=== PATIENT | male | born 1935 | race Caucasian/White ===

== ENCOUNTER 2021-12-05 15:56 | Observation (INO) | payer BC, MEDICARE ==
[~2021-12-05] VITALS: Ht 167.6 cm; Wt 50.6 kg
--- NOTE | 2021-12-05 16:26 | EKG ---
[address] [address] Test Date: 2021-12-05 Test Time: 16:19:08 Pat Name: MEAGAN POLLARD Department: Room: Gender: M Supervisor [employer]: [employer] : 1935 Requested By: CHALO ARCHIBALD Order Number: [id number] Reading MD: Micah Ambrosio Measurements Intervals Stephan Rate: 94 P: 25 LA: 198 QRS: -20 QRSD: 88 T: 25 QT: 354 QTc: 448 Interpretive Statements SINUS RHYTHM Electronically Signed On 12-07-2021 12:50:33 ACCOUNTING/FINANCE TUTOR by Micah Ambrosio
[2021-12-05] MEDS ORDERED: ACETAMINOPHEN 650 MG SUPP.RECT. ONE (16:30)
[2021-12-05] MEDS ORDERED: ACETAMINOPHEN 500 MG TABLET PO ONE (16:30)
--- NOTE | 2021-12-05 16:34 | PHYS DOC ---
Past History Additional Past Medical Histor: UNKNOWN DETAILS; PT ON BLOOD THINNER FOR UNKNOWN REASON; ENLARGED PROSTATE Past Surgical History: Other Additional Past Surgical Histo: UNKNOWN Alcohol Use: Sober General Adult EDM: Chief Complaint: ALTERED MENTAL STATUS HPI: HPI: 86-year-old male presents with altered mental status. Patient has dementia at baseline. Entire history comes from EMS reports. The patient was reported to be put to bed by his family yesterday and he was his normal confused self. Today, he has been more altered than normal since he woke up this morning. Jenni zamorano has a history of UTIs in the past. They report he had a fever at home. He does have a fever on arrival. Review of Systems: Review of Systems: Unable to evaluate due to patient's mental status. Current Medications: Current Meds: Current Medications Medications (Trade) Dose Ordered Sig/Raegan Start Time Stop Time Status Last Admin Dose Admin Acetaminophen (Tylenol) 1,000 mg 1X ONCE 12/05/21 16:30 12/05/21 16:31 UNV Allergies: Allergies: Allergies Coded Allergies Type Severity Reaction Last Updated Verified Unable to Assess 12/05/21 No Physical Exam: PE: Constitutional: Well developed, well nourished, no acute distress, fever. [] HENT: Normocephalic, atraumatic, bilateral external ears normal, oropharynx moist, no oral exudates, nose normal. [] Eyes: PERRLA, EOMI, conjunctiva normal, no discharge. [] Neck: Normal range of motion, no tenderness, supple, no stridor. [] Cardiovascular: Heart rate regular rhythm, no murmur [] Lungs & Thorax: Bilateral breath sounds clear to auscultation [] Abdomen: Bowel sounds normal, soft, generalized abdominal tenderness, no masses, no pulsatile masses. [] Skin: Warm, dry, no erythema, no rash. [] Back: No tenderness, no CVA tenderness. [] Extremities: No tenderness, no cyanosis, no clubbing, ROM intact, no edema. [] Neurologic: Alert, demented. [] Psychologic: Affect normal, mood normal. [] Current Patient Data: Vital Signs: Vital Signs Date Time Temp Pulse Resp B/P (MAP) Pulse Ox O2 Delivery O2 Flow Rate FiO2 12/05/21 16:07 101.2 95 23 148/80 (102) 95 Room Air EKG: EKG: Sinus rhythm, rate 94, leftward axis, no ST elevation or depression. [] Radiology/Procedures: Radiology/Procedures: [] Impressions: CT brain without contrast. HISTORY: Altered mental status CT scan of brain was done without contrast. There is slight mucosal thickening in the left maxillary sinus. There is no skull fracture. There is no intracranial hemorrhage or subdural hematoma. There is diffuse atrophy. Acute CVA is not identified. Ventricles are normal in size. There is decreased density in the periventricular white matter. IMPRESSION: 1. Atrophy and chronic white matter changes. 2. No intracranial hemorrhage or definite acute finding. PQRS Compliance Statement: One or more of the following individualized dose reduction techniques were utilized for this examination: 1. Automated exposure control 2. Adjustment of the mA and/or kV according to patient size 3. Use of iterative reconstruction technique Electronically signed by: Daron Dejesus MD (12/05/2021 4:43 PM) [facility] DICTATED AND SIGNED BY: DARON DEJESUS MD DATE: 12/05/211637 CC: CHALO ARCHIBALD DO; JOHN RICH MD ~MTH0 0 Heart Score: C/O Chest Pain: N/A Risk Factors: Risk Factors: DM, Current or recent (<one month) smoker, HTN, HLP, family history of CAD, obesity. Risk Scores: Score 0 - 3: 2.5% MACE over next 6 weeks - Discharge Home Score 4 - 6: 20.3% MACE over next 6 weeks - Admit for Clinical Observation Score 7 - 10: 72.7% MACE over next 6 weeks - Early Invasive Strategies Course & Med Decision Making: Course & Med Decision Making Pertinent Labs and Imaging studies reviewed. (See chart for details) The patient has an elevated temperature. We will continue his 1 L of lactated Ringer's started by EMS. We will give him a gram of Tylenol. Head CT is negative for acute findings. Chest x-ray is negative for acute findings. Patient's blood pressure is elevated at 161/93. His heart rate is in the 90s. After blood cultures were drawn, the patient was given a gram of Rocephin. The patient's labs are unremarkable. Urinalysis is pending. I plan to admit the patient to the hospital. I spoke with Dr. Molina and he has accepted the patient for admission. Dr. Martinez has been made aware of the patient while he is still in the emergency room. We do not have beds available in the hospital at this time. [] Dragon Disclaimer: Dragon Disclaimer: This electronic medical record was generated, in whole or in part, using a voice recognition dictation system. Departure Departure: Impression: Primary Impression: Altered mental status Additional Impression: Fever Disposition: ADMITTED INPATIENT Admitting Physician: Paddy Molina Condition: STABLE Referrals: PCP,UNKNOWN (PCP) CHALO ARCHIBALD DO Dec 05, 2021 16:34
--- NOTE | 2021-12-05 16:41 | RAD ---
EXAM: Chest, single view. HISTORY: Altered mental status. COMPARISON: None. FINDINGS: A frontal view of the chest is obtained. There are chronic interstitial changes. There is n o consolidation, pleural effusion or pneumothorax. The heart is normal in size. IMPRESSION: No acute pulmonary finding. Electronically signed by: Becky Marroquin MD (12/05/2021 4:38 PM) [facility]
[2021-12-05] MEDS ORDERED: ACETAMINOPHEN 650 MG SUPP.RECT. PR ONE (16:45)
--- NOTE | 2021-12-05 16:45 | RAD ---
CT brain without contrast. HISTORY: Altered mental status CT scan of brain was done without contrast. There is slight mucosal thickening in the left maxillary sinus. There is no skull fracture. There is no intracranial hemorrhage or subdural hematoma. There is diffuse atrophy. Acute CVA is not identified. Ventricles are normal in size. There is decreased dens ity in the periventricular white matter. IMPRESSION: 1. Atrophy and chronic white matter changes. 2. No intracranial hemorrhage or definite acute finding. PQRS Compliance Statement: One or more of the following individualized dose reduction techniques were utilized for this examinat ion: 1. Automated exposure control 2. Adjustment of the mA and/or kV according to patient size 3. Use of iterative reconstruction technique Electronically signed by: Daron Dejesus MD (12/05/2021 4:43 PM) [facility]
[2021-12-05 17:40] LABS: CALCIUM 8.6 mg/dL (8.5-10.1); CREATININE 1.3 mg/dL (0.7-1.3); GFR 52.6; POTASSIUM 4.3 mmol/L (3.5-5.1)
[2021-12-05 17:42] LABS: BASO % 1 % (0-3); EOS % 0 % (0-3); HEMATOCRIT 47.2 % (39.0-53.0); HEMOGLOBIN 15.9 g/dL (13.0-17.5); LYMPH # 0.4 x10^3/uL (1.0-4.8); LYMPH % 5 % (24-48); MEAN CORPUSCULAR HEMOGLOBIN 31 pg (25-35); MEAN CORPUSCULAR HGB CONC 34 g/dL (31-37); MEAN CORPUSCULAR VOLUME 92 fL (79-100); MONO # 0.7 x10^3/uL (0.0-1.1); MONO % 9 % (0-9); NEUT # 6.9 x10^3uL (1.8-7.7); NEUT % 85 % (31-73); PLATELET COUNT 176 x10^3/uL (140-400); RED BLOOD COUNT 5.13 x10^6/uL (4.30-5.70); RED CELL DISTRIBUTION WIDTH 13.1 % (11.5-14.5)
[2021-12-05 17:46] LABS: ALBUMIN 3.5 g/dL (3.4-5.0); ALBUMIN/GLOBULIN RATIO 1.2 (1.0-1.7); TOTAL BILIRUBIN 0.5 mg/dL (0.2-1.0); TOTAL PROTEIN 6.5 g/dL (6.4-8.2)
[2021-12-05 17:54] LABS: BILIRUBIN,URINE NEG (NEG); CLARITY,URINE CLOUDY; COLOR,URINE YELLOW; GLUCOSE,URINE NEG (NEG)
[2021-12-05 17:55] LABS: BACTERIA,URINE MANY /HPF (0-FEW); NITRITE,URINE POS (NEG); SQUAMOUS EPITHELIAL CELL,UR OCC /LPF; UROBILINOGEN,URINE 0.2 mg/dL (0.2 mg/dL); WBC,URINE >40 /HPF (0-4)
[2021-12-05] MEDS ORDERED: cefTRIAXone SODIUM 1 GM VIAL ONE (17:57)
[2021-12-05] MEDS ORDERED: IV NORMAL SALINE 50ML 50 ML ONE (17:57)
[2021-12-05] MEDS ORDERED: ONDANSETRON PF 4 MG/2 ML VIAL. IVP PRN (18:00)
[2021-12-05 18:28] LABS: INFLUENZA A PATIENT NEGATIVE (NEGATIVE); INFLUENZA B PATIENT NEGATIVE (NEGATIVE)
--- NOTE | 2021-12-06 00:57 | NUR ---
The patient, MEAGAN POLLARD, 86 y/o, M admitted by NORMAN VALLE MD, was given written information regarding hospital policies, unit procedures and contact persons. Valuables were checked and logged. Call light at bedside.
[2021-12-06 01:21] VITALS: BP 174/93
--- NOTE | 2021-12-06 01:37 | NUR ---
Nursing Note Pt admitted to 111, is confused, has body aches and significant cough without crackles or wheezes sat is 96% on room air. Pt only oriented to name. Follows commands somewhat. SL noted to left AC space. Pt has significant startle response to touch from staff. Pt is generally irritable.
[2021-12-06] MEDS ORDERED: BENA20TA84 PO (01:46)
[2021-12-06] MEDS ORDERED: OXYB5TAB10 PO (01:46)
[2021-12-06] MEDS ORDERED: CALC500T31 PO (01:46)
[2021-12-06] MEDS ORDERED: DONE10TA7 PO (01:46)
[2021-12-06] MEDS ORDERED: ACET325T9 PO (01:46)
[2021-12-06] MEDS ORDERED: MELA1TAB44 PO (01:46)
[2021-12-06] MEDS ORDERED: TAMS0.4C97 PO (01:46)
[2021-12-06] MEDS ORDERED: DOCU100T5 PO (01:46)
[2021-12-06] MEDS ORDERED: APIX5TAB3 PO (01:46)
[2021-12-06] MEDS ORDERED: FINA5TAB4 PO (01:46)
[2021-12-06] MEDS ORDERED: MULT-496 PO (01:46)
[2021-12-06] MEDS ORDERED: ACETAMINOPHEN 325 MG TABLET PO PRN (02:00)
[2021-12-06] MEDS ORDERED: ANTI-COAG MONITOR BY PHARMACY. MC PRN (02:00)
[2021-12-06 06:12] VITALS: BP 153/86
[2021-12-06] MEDS ORDERED: MULTIVITAMIN with MINERAL TABLET. PO SCH (09:00)
[2021-12-06] MEDS ORDERED: DOCUSATE SODIUM 100 MG CAPSULE PO SCH (09:00)
[2021-12-06] MEDS ORDERED: TAMSULOSIN 0.4 MG CAP.ER.24H. PO SCH (09:00)
[2021-12-06] MEDS ORDERED: LISINOPRIL 20 MG TABLET PO SCH (09:00)
[2021-12-06] MEDS ORDERED: FINASTERIDE 5 MG TABLET. PO SCH (09:00)
[2021-12-06] MEDS ORDERED: APIXABAN 5 MG TABLET. PO SCH (09:00)
--- NOTE | 2021-12-06 09:34 | NUR ---
Nursing note PT in bed, able to state he is not in pain, assessments done, medication administered per doctors orders. RN assisted PT with feeding, PT verbalized he can continue eating by himself. PT in bed call light within reach, will continue to monitor. PTs daughter called to check on him, stating she hopes he is doing better today and if her dad is to be discharge, she should be notified. RN told PTs daughter she will be notified of any changes, and she verbalized she will like to talk with the doctor when ever he sees her father. RN told PTs daughter the doctor will be told of her request.
[2021-12-06 11:14] VITALS: BP 142/82
[2021-12-06 15:03] VITALS: BP 138/85
[2021-12-06] MEDS ORDERED: CALCIUM CARBONATE 500 MG TABLET PO SCH (16:00)
--- NOTE | 2021-12-06 16:56 | NUR ---
Nursing note PT in bed, assessed by the doctor and told he will need to stay in the hospital in order for his UTI to be treated. PT family called and stated they did not want their dad to be admitted to the hospital and will want him to be discharge so he can be closer to his urologist. Doctor notified of Patient family request. PT in bed, call light within reach, verbalized no other needs. Will continue to monitor.
--- NOTE | 2021-12-06 18:05 | HP ---
DATE OF SERVICE: 12/06/2021 ADMIT DATE: 12/05/2021 HISTORY OF PRESENT ILLNESS: The patient is an 86-year-old male patient who was brought to the Emergency Room by EMS with altered mental status. The patient is known to have dementia at baseline and the entire history came from EMS, reports the patient was reported to be put in bed by his family yesterday and he was his normal confused self. Today he has been more altered than normal since he woke up this morning. The patient has a history of UTIs in the past. They report that he had a fever at home and he had fever on arrival to the Emergency Room, in fact, his temperature was 101.5. The patient was demented and not much information was gained from him. He was extensively investigated in the Emergency Room and has had lab work and imaging studies. His lab work showed his white cell count was normal at 8000. His chemistry also showed he has chronic kidney failure, but otherwise unremarkable and his urinalysis showed the urine was cloudy yellow with a pH of 7.5, specific gravity was 1.020 with a trace of protein, negative for glucose and ketones. There was large amount of blood, positive for nitrite, large amount of leukocyte esterase and more than 40 wbc's and many bacteria. His influenza A and B were negative and SARS-CoV-2 antigens rapid testing was positive. Has had chest x-ray, which basically showed no acute pulmonary finding and a CT scan of the head showed atrophy and chronic white matter changes, no intracranial hemorrhage or definite acute finding. The patient was admitted with UTI, started on IV Rocephin and was admitted to continue the IV antibiotic and urine was sent for culture and sensitivity. PAST MEDICAL HISTORY: Significant for enlarged prostate, dementia. MEDICATIONS: He is currently on the following medications: He is on Aricept 10 mg at bedtime, tamsulosin 0.4 mg at bedtime. He is on apixaban 5 mg twice a day, benazepril 20 mg once a day, acetaminophen 650 mg every 6 hours, calcium carbonate 500 mg daily, Colace 100 mg twice a day, oxybutynin chloride 5 mg daily, multivitamin 1 tablet once a day, finasteride 5 mg once a day, melatonin 1 mg once a day. PAST SURGICAL HISTORY: Unremarkable. FAMILY HISTORY: Noncontributory. SOCIAL HISTORY: Apparently lives with his daughter. No further information available. PHYSICAL EXAMINATION: GENERAL: On arrival to the Emergency Room, the patient was somewhat lethargic, but arousable. There was no pallor, jaundice, cyanosis. No lymphadenopathy, no thyromegaly, no jugular venous distention. No limb edema. VITAL SIGNS: His heart rate was 99, blood pressure was 144/81, temperature was 98.4, respiratory rate 21, oxygen saturation was 93%. HEAD, EYES, EARS, NOSE, AND THROAT: Normocephalic, atraumatic. NECK: Supple. HEART: Showed normal first and second heart sounds. No gallop, rub or murmur. CHEST: Shows central trachea, equal bilateral chest expansion, air entry, vesicular breath sounds. No crepitation or rhonchi. ABDOMEN: Distended, soft, nontender. NEUROLOGIC: He was demented without any obvious lateralizing sign. LABORATORY DATA: On admission showed a white cell count of 8000, hemoglobin 15.6, hematocrit 47, MCV 92 and platelet count of 176,000. Serum sodium was 140, potassium 4.3, chloride 106, bicarbonate 26, anion gap of 8, BUN 25, creatinine 1.3. Estimated GFR was 52 mL per minute. His glucose 100, lactic acid 2, calcium was 8.6. Total bilirubin, AST, ALT, alkaline phosphatase were normal. His total protein 6.5, albumin 3.5. Chest x-ray was unremarkable. CT scan was also unrevealing. ASSESSMENT AND PLAN: The patient was admitted with fever, altered mental status and urinalysis consistent with urinary tract infection. He was continued on all his medications, was treated with ceftriaxone 1 gram IV. We will continue to monitor his lab work and await the result of the urine culture and sensitivity. PARTH/EKT DR: PARTH/ava TID: [id number]
--- NOTE | 2021-12-06 18:07 | NUR ---
Nursing notes PT left the facility against medical advise with request from his family. PT was stable during discharge and the doctor explained all the reasons why the PT should be in the hospital for treatment and the family refused. PT stable when he left the facility, was picked up by his daughter who is the power of claim attorney at 18:02 on MondayNovember,. The AMA form was signed by the Patients POA with the witness of the nurse, security and a COMMUNITY ENGAGEMENT LEADER.
[2021-12-06] MEDS ORDERED: DONEPEZIL HCL 10 MG TABLET PO SCH (21:00)
[2021-12-06] MEDS ORDERED: OXYBUTYNIN CHLORIDE 5 MG TABLET PO SCH (21:00)
[2021-12-06] MEDS ORDERED: MELATONIN 3 MG TABLET PO SCH (21:00)
== END 2021-12-06 18:15 | disposition left against medical advice (07) ==
LOC: ER 15:56 → INTOOBSV 17:54 → ER HOLD 17:54 → 1 SOUTH 12-06 00:35
PROVIDERS: ADMIT Internal Medicine; ATTEND Internal Medicine
DX: U07.1 COVID-19 (principal); R41.82 Altered mental status, unspecified; R50.9 Fever, unspecified; N39.0 Urinary tract infection, site not specified; N40.0 Benign prostatic hyperplasia without lower urinary tract symptoms; F03.90 Unspecified dementia, unspecified severity, without behavioral disturbance, psychotic disturbance, mood disturbance, and anxiety; N18.9 Chronic kidney disease, unspecified
CPT/HCPCS: 36415; 70450; 71045; 80053; 81001; 83605; 84484; 85025; 85610; 85730; 87040; 87086; 87428; 93005; 96365; 96366; 99285; G0378; J0696; 87077; 87186; G0379